=== PATIENT | female | born 1965 | race Caucasian/White ===

== ENCOUNTER 2017-06-18 00:35 | Emergency (ER) | payer SELFPAY ==
[~2017-06-18] VITALS: Ht 160 cm; Wt 59.0 kg
[2017-06-18 00:37] VITALS: BP 130/86
== END 2017-06-18 01:09 | disposition left against medical advice (07) ==
LOC: EDUNIT# 00:35 → EMS 00:41
DX: R21 Rash and other nonspecific skin eruption (principal); Z53.21 Procedure and treatment not carried out due to patient leaving prior to being seen by health care provider

== ENCOUNTER 2017-11-25 23:42 | Emergency (ER) | payer MEDICAID ==
[~2017-11-25] VITALS: Ht 162.6 cm; Wt 58.2 kg
[2017-11-26] MEDS ORDERED: PROCHLORPERAZINE EDISYLATE 5 MG/ML 2 ML VIAL IVP ONE (01:00)
[2017-11-26] MEDS ORDERED: SODIUM CHLORIDE 0.9% 1,000 ML IV ONE (01:00)
[2017-11-26] MEDS ORDERED: DiphenhydrAMINE HCL 50 MG/ML VIAL IVP ONE (01:00)
[2017-11-26 01:49] VITALS: BP 118/67
[2017-11-26] MEDS ORDERED: BUTALBITAL/ACETAMINOPHEN/CAFFEINE 50-325-40 MG TABLET PO ONE (02:00)
== END 2017-11-26 02:12 | disposition home or self-care (01) ==
LOC: EMS 23:43
DX: G43.909 Migraine, unspecified, not intractable, without status migrainosus (principal)
CPT/HCPCS: 96374; 96375; 99284; J0780; J1200; J7030

== ENCOUNTER 2018-02-03 13:28 | Emergency (ER) | payer MEDICAID ==
[~2018-02-03] VITALS: Ht 157.5 cm; Wt 57.0 kg
[2018-02-03] MEDS ORDERED: OMEP20 PO (13:34)
[2018-02-03 14:23] LABS: BASOPHILS % (AUTO) 0.4 % (0.0-2.0); EOSINOPHILS % (AUTO) 0.4 % (1.0-6.0); HEMATOCRIT 39.5 % (36-46); HEMOGLOBIN 13.5 g/dL (12.0-16.0); LYMPHOCYTES # (AUTO) 1.7 K/uL (1.0-4.8); LYMPHOCYTES % (AUTO) 27.9 % (22.0-44.0); MEAN CORPUSCULAR HEMOGLOBIN 30.7 pg (26.0-34.0); MEAN CORPUSCULAR HGB CONC 34.1 G/dL (31.0-37.0); MEAN CORPUSCULAR VOLUME 90 fL (80-100); MONOCYTES # (AUTO) 0.4 K/uL (0.1-1.0); MONOCYTES % (AUTO) 6.6 % (2.0-9.0); NEUTROPHILS % (AUTO) 64.7 % (40.0-70.0); PLATELET COUNT (AUTO) 230 K/uL (150-450); RED BLOOD CELL COUNT(AUTO) 4.39 MIL/uL (4.00-5.20); RED CELL DISTRIBUTION WIDTH 13.4 % (11.5-14.5)
[2018-02-03 14:39] LABS: ANION GAP 10 mmol/L (8-16); CALCIUM, TOTAL 8.6 mg/dL (8.8-10.5); CARBON DIOXIDE 22 mmol/L (22-29); CHLORIDE 106 mmol/L (98-107); CREATININE 0.75 mg/dL (0.60-1.30); GLOMERULAR FILTR. RATE CALC > 60 mL/min (>60); GLUCOSE,RANDOM 96 mg/dL (70-110); POTASSIUM 3.9 mmol/L (3.5-5.1); SODIUM SERUM 138 mmol/L (136-145); UREA NITROGEN, BLOOD 24 mg/dL (7-18)
[2018-02-03 14:41] LABS: ALANINE AMINOTRANSFERASE 37 U/L (12-78); ALBUMIN 3.6 g/dL (3.4-5.0); ALKALINE PHOSPHATASE 45 U/L (46-116); ASPARTATE AMINOTRANSFERASE 27 U/L (15-37); BILIRUBIN,TOTAL 0.5 mg/dL (0.1-1.0); LIPASE 185 U/L (73-393)
[2018-02-03 16:16] LABS: APPEARANCE,URINE CLEAR (CLEAR); BILIRUBIN,URINE NEGATIVE (NEGATIVE); GLUCOSE, URINE (UA) NEGATIVE (NEGATIVE); KETONES,URINE NEGATIVE (NEGATIVE); LEUKOCYTE ESTERASE ,URINE SMALL (NEGATIVE); NITRATE,URINE NEGATIVE (NEGATIVE); OCCULT BLOOD,URINE LARGE (NEGATIVE); PH,URINE 5.5 (5.0-8.0); PROTEIN,URINE NEGATIVE (NEGATIVE); UROBILINOGEN,URINE 0.2 mg/dL (<=1.0)
[2018-02-03 16:34] LABS: BACTERIA,URINE Few /HPF (None Seen); RBC,URINE 26-50 /HPF (0-2); SQUAMOUS EPITHELIAL CELL,UR Few /LPF (None Seen)
[2018-02-03] MEDS ORDERED: TraMADol HCL 50 MG TABLET PO ONE (17:30)
[2018-02-03] MEDS ORDERED: CIPROFLOXACIN HCL 250 MG TABLET PO ONE (18:15)
[2018-02-03 22:10] VITALS: BP 119/68
== END 2018-02-03 22:31 | disposition home or self-care (01) ==
LOC: EMS 13:29
DX: N39.0 Urinary tract infection, site not specified (principal); Z88.6 Allergy status to analgesic agent
CPT/HCPCS: 74176; 76705; 87086; 99285

== ENCOUNTER 2018-05-01 00:23 | Emergency (ER) | payer MEDICAID ==
[~2018-05-01] VITALS: Ht 157.5 cm; Wt 58.2 kg
[~2018-05-01 00:23] MED LIST: OMEP20 PO
[2018-05-01 01:34] LABS: BILIRUBIN,URINE NEGATIVE (NEGATIVE); GLUCOSE, URINE (UA) NEGATIVE (NEGATIVE); KETONES,URINE NEGATIVE (NEGATIVE); LEUKOCYTE ESTERASE ,URINE NEGATIVE (NEGATIVE); NITRATE,URINE NEGATIVE (NEGATIVE); OCCULT BLOOD,URINE LARGE (NEGATIVE); PROTEIN,URINE NEGATIVE (NEGATIVE); UROBILINOGEN,URINE 0.2 mg/dL (<=1.0)
[2018-05-01 01:36] LABS: APPEARANCE,URINE HAZY (CLEAR)
[2018-05-01 01:46] LABS: BACTERIA,URINE None Seen /HPF (None Seen); SQUAMOUS EPITHELIAL CELL,UR Few /LPF (None Seen); WBC,URINE 0-2 /HPF (0-5)
[2018-05-01 02:00] VITALS: BP 122/76
== END 2018-05-01 02:12 | disposition home or self-care (01) ==
LOC: EMS 00:24
DX: R30.0 Dysuria (principal); R35.0 Frequency of micturition; R39.15 Urgency of urination; Z88.6 Allergy status to analgesic agent
CPT/HCPCS: 99283

== ENCOUNTER 2020-07-25 01:36 | Emergency (ER) | payer MEDICAID ==
[~2020-07-25] VITALS: Ht 157.5 cm; Wt 56.8 kg
[2020-07-25] MEDS ORDERED: DOXYCYCLINE HYCLATE 100 MG TABLET PO ONE (02:30)
[2020-07-25] MEDS ORDERED: CefTRIAXone SODIUM 1 GM/VIAL IM ONE (02:30)
[2020-07-25 03:40] LABS: APPEARANCE,URINE CLEAR (CLEAR); BILIRUBIN,URINE NEGATIVE (NEGATIVE); GLUCOSE, URINE (UA) NEGATIVE (NEGATIVE); KETONES,URINE NEGATIVE (NEGATIVE); LEUKOCYTE ESTERASE ,URINE NEGATIVE (NEGATIVE); NITRATE,URINE NEGATIVE (NEGATIVE); OCCULT BLOOD,URINE MODERATE (NEGATIVE); PROTEIN,URINE NEGATIVE (NEGATIVE)
[2020-07-25 03:52] LABS: BACTERIA,URINE Few /HPF (None Seen); SQUAMOUS EPITHELIAL CELL,UR Rare /LPF (None Seen); WBC,URINE 0-2 /HPF (0-5)
[2020-07-25] MEDS ORDERED: CEPHALEXIN MONOHYDRATE 500 MG CAPSULE PO ONE (04:30)
[2020-07-25 05:06] VITALS: BP 129/77
== END 2020-07-25 05:43 | disposition home or self-care (01) ==
LOC: EMS 01:36
DX: N76.2 Acute vulvitis (principal); Z88.8 Allergy status to other drugs, medicaments and biological substances
CPT/HCPCS: 87210; 87491; 87591

== ENCOUNTER 2020-09-16 18:06 | Emergency (ER) | payer MEDICAID ==
[~2020-09-16] VITALS: Ht 157.5 cm; Wt 57.7 kg
[2020-09-16 20:05] LABS: APPEARANCE,URINE CLOUDY (CLEAR); BILIRUBIN,URINE NEGATIVE (NEGATIVE); GLUCOSE, URINE (UA) NEGATIVE (NEGATIVE); KETONES,URINE NEGATIVE (NEGATIVE); LEUKOCYTE ESTERASE ,URINE NEGATIVE (NEGATIVE); NITRATE,URINE NEGATIVE (NEGATIVE); OCCULT BLOOD,URINE SMALL (NEGATIVE); PH,URINE 7.5 (5.0-8.0); PROTEIN,URINE NEGATIVE (NEGATIVE); UROBILINOGEN,URINE 0.2 mg/dL (<=1.0)
[2020-09-16 20:29] LABS: BACTERIA,URINE Few /HPF (None Seen); SQUAMOUS EPITHELIAL CELL,UR Few /LPF (None Seen); WBC,URINE 0-2 /HPF (0-5)
[2020-09-16] MEDS ORDERED: AZITHROMYCIN 500 MG TABLET PO ONE (23:45)
[2020-09-16] MEDS ORDERED: CefTRIAXone SODIUM 1 GM/VIAL IM ONE (23:45)
[2020-09-16] MEDS ORDERED: LIDOCAINE/PF 1% 2 ML VIAL IM ONE (23:45)
[2020-09-16] MEDS ORDERED: MetroNIDAZOLE 500 MG TABLET PO ONE (23:45)
[2020-09-17 01:50] VITALS: BP 132/68
== END 2020-09-17 01:54 | disposition home or self-care (01) ==
LOC: EMS 18:08
DX: R10.2 Pelvic and perineal pain (principal); Z88.6 Allergy status to analgesic agent; Z90.49 Acquired absence of other specified parts of digestive tract
CPT/HCPCS: 81001; 84703; 87210; 87220; 96372; 99284; J0696; J3490

== ENCOUNTER 2021-03-25 01:50 | Emergency (ER) | payer MEDICAID | END 2021-03-25 02:09 | disposition left against medical advice (07) | LOC: EMS 01:53 | DX: B02.9 Zoster without complications (principal); Z53.21 Procedure and treatment not carried out due to patient leaving prior to being seen by health care provider ==

== ENCOUNTER 2021-04-20 20:27 | Emergency (ER) | payer MEDICAID ==
[~2021-04-20] VITALS: Ht 157.5 cm; Wt 59.1 kg
[2021-04-20 20:52] VITALS: BP 129/79
[2021-04-20 21:06] LABS: APPEARANCE,URINE CLEAR (CLEAR); BILIRUBIN,URINE NEGATIVE (NEGATIVE); GLUCOSE, URINE (UA) NEGATIVE (NEGATIVE); KETONES,URINE NEGATIVE (NEGATIVE); LEUKOCYTE ESTERASE ,URINE NEGATIVE (NEGATIVE); NITRATE,URINE NEGATIVE (NEGATIVE); OCCULT BLOOD,URINE MODERATE (NEGATIVE); PROTEIN,URINE NEGATIVE (NEGATIVE); UROBILINOGEN,URINE 0.2 mg/dL (<=1.0)
[2021-04-20 22:07] LABS: BACTERIA,URINE None Seen /HPF (None Seen); WBC,URINE 0-2 /HPF (0-5)
== END 2021-04-20 21:23 | disposition left against medical advice (07) ==
LOC: EMS 20:28
DX: R10.2 Pelvic and perineal pain (principal); Z53.21 Procedure and treatment not carried out due to patient leaving prior to being seen by health care provider
CPT/HCPCS: 81001

== ENCOUNTER 2021-04-20 23:32 | Emergency (ER) | payer MEDICAID ==
[~2021-04-20] VITALS: Ht 157.5 cm; Wt 58.2 kg
[2021-04-21] MEDS ORDERED: FLUCONAZOLE 200 MG TABLET PO ONE (04:45)
[2021-04-21 05:17] VITALS: BP 137/84
== END 2021-04-21 05:30 | disposition home or self-care (01) ==
LOC: EMS 23:34
DX: N76.0 Acute vaginitis (principal); Z90.49 Acquired absence of other specified parts of digestive tract
CPT/HCPCS: 99283